=== PATIENT | male | born 1975 | race Caucasian/White ===

== ENCOUNTER 2016-07-28 21:23 | Emergency (ER) | payer BC ==
[2016-07-28 21:38] VITALS: TEMP 98.9; BMI 30.4
--- NOTE | 2016-07-28 22:28 | PDOC ---
History of Present Illness - General History Source: Patient Exam Limitations: No Limitations <Vicente Hudson - Last Filed: 07/28/16 22:44> <Hang Aly - Last Filed: 07/29/16 02:23> - General Chief Complaint: Syncope/Near Syncope Stated Complaint: SYNCOPE Time Seen by Provider: 07/28/16 22:04 - History of Present Illness Initial Comments: 07/28/16 22:44 The patient is a 40 year old male,here with with no significant past medical history who presents to the emergency department with witnessed syncopal episode at home. Patient reports he has been feeling achy all day, noting also feeling lethargic and having a decreased appetite. He then reports having a syncopal episode found by his and awoke in a cold sweat. Denies any head trauma. He denies chest pain and shortness of breath. He denies fever, chills, headache and dizziness. He denies nausea, vomit, diarrhea and constipation. He denies dysuria, frequency, urgency and hematuria. Allergies: NKA (Vicente Hudson) Past History <Vicente Hudson - Last Filed: 07/28/16 22:44> - Past Medical History Anemia: No Asthma: No Cancer: No Cardiac Disorders: No CVA: No COPD: No CHF: No Dementia: No Diabetes: No GI Disorders: No Disorders: No HTN: No Hypercholesterolemia: Yes Liver Disease: No Seizures: No Thyroid Disease: No - Surgical History Abdominal Surgery: Yes (hernia) - Psycho/Social/Smoking Cessation Hx Anxiety: No Suicidal Ideation: No Smoking Status: No Smoking History: Never smoked Have you smoked in the past 12 months: No Number of Cigarettes Smoked Daily: 0 If you are a former smoker, when did you quit?: 6 MONTHS AGO Information on smoking cessation initiated: No 'Breaking Loose' booklet given: 03/10/12 Hx Alcohol Use: No Drug/Substance Use Hx: No Substance Use Type: Alcohol Hx Substance Use Treatment: No <Hang Aly - Last Filed: 07/29/16 02:23> - Past Medical History Allergies/Adverse Reactions: Allergies Allergy/AdvReac Type Severity Reaction Status Date / Time No Known Drug Allergies Allergy Verified 07/28/16 21:34 Home Medications: Ambulatory Orders Aspirin [ASA -] 81 mg PO DAILY 07/28/16 Atorvastatin Ca [Lipitor] 10 mg PO HS 07/28/16 Cardiac Specific PMH - Complaint Specific PMHX Pacemaker: No <Hang Aly - Last Filed: 07/29/16 02:23> Review of Systems - Review of Systems Able to Perform ROS?: Yes <Vicente Hudson - Last Filed: 07/28/16 22:44> <Hang Aly - Last Filed: 07/29/16 02:23> - Review of Systems Comments:: 07/28/16 22:44 CONSTITUTIONAL: No fever, no chills, no fatigue EYES: No visual changes ENT: No ear pain, no sore throat CARDIOVASCULAR: No chest pain, no palpitations RESPIRATORY: No cough, no SOB GI: No abdominal pain, no nausea, no vomiting, no constipation, no diarrhea GENITOURINARY: No dysuria, no frequency, no hematuria MUSKULOSKELETAL: No backpain, no joint pain, no myalgias SKIN: No rash NEURO: Yes syncope. No headache (Vicente Hudsno) *Physical Exam <Vicente Hudson - Last Filed: 07/28/16 22:44> <Hang Aly - Last Filed: 07/29/16 02:23> - Vital Signs Last Vital Signs Temp Pulse Resp BP Pulse Ox 98.9 F 109 H 17 127/80 97 07/28/16 21:35 07/28/16 23:53 07/28/16 23:53 07/28/16 23:53 07/28/16 23:53 - Physical Exam Comments: 07/28/16 22:44 CONSTITUTIONAL: Well-appearing; well-nourished; in no apparent distress HEAD: Normocephalic; atraumatic EYES: PERRL; EOM intact ENMT: External appears normal; normal oropharynx NECK: Supple; non-tender; no cervical lymphadenopathy CARD: Tachycardia. Normal S1, S2; no murmurs, rubs, or gallops RESP: Normal chest excursion with respiration; breath sounds clear and equal bilaterally; no wheezes, rhonchi, or rales ABD: Soft, non-distended; non-tender; no palpable organomegaly, no palpable hernias EXT: Normal ROM in all four extremities; non-tender to palpation; distal pulses intact SKIN: Warm, dry, no rash NEURO: No focal neurological deficiencies. (Vicente Hudson) Heart Score/ECG Review <Vicente Hudson - Last Filed: 07/28/16 22:44> <Hang Aly - Last Filed: 07/29/16 02:23> - ECG Impressions Comment:: 07/28/16 22:31 EKG received and reviewed by at 10:17 pm Sinus tachycardia at 112 bpm [place] interval 158 ms QTc 428 ms (Vicente Hudson) ED Treatment Course - LABORATORY CBC & Chemistry Diagram: 07/28/16 22:45 07/28/16 22:45 <Hang Aly - Last Filed: 07/29/16 02:23> - ADDITIONAL ORDERS Additional order review: Laboratory Results 07/28/16 07/28/16 07/28/16 22:45 22:45 22:40 D-Dimer < 200 Sodium 139 Potassium 3.8 Chloride 101 Carbon Dioxide 24 Anion Gap 14 BUN 12 Creatinine 1.2 D Creat Clearance w eGFR > 60 Random Glucose 178 H D Calcium 8.3 L Total Bilirubin 1.1 H D AST 28 D ALT 57 D Alkaline Phosphatase 120 H D Creatine Kinase 123 Troponin I < 0.02 Total Protein 6.8 Albumin 3.8 Urine Color Straw Urine Appearance Clear Urine pH 6.0 Ur Specific [place] 1.006 Urine Protein Negative Urine Glucose (UA) 1+ H Urine Ketones Negative Urine Blood Negative Urine Nitrite Negative Urine Bilirubin Negative Urine Urobilinogen Negative Ur Leukocyte Esterase Negative 07/28/16 22:45 Influenza Types A,B Antigen (IRENE) - Final Nasopharyngeal Aspirate - Final 07/28/16 22:45 RBC 5.59 MCV 81.5 MCHC 32.9 RDW 14.0 MPV 9.0 D Neutrophils % 87.4 H D Lymphocytes % 6.4 L D Monocytes % 5.6 Eosinophils % 0.3 D Basophils % 0.3 - RADIOLOGY Radiology Studies Ordered: Category Date Time Status CHEST CT WITH CONTRAST [CT] Stat CT Scan 07/29/16 01:17 Taken CHEST PA & LAT [RAD] Stat Radiology 07/28/16 22:40 Taken - Medications Given in the ED: ED Medications Discontinued Medications Generic Name Dose Route Start Last Admin Trade Name Freq PRN Reason Stop Dose Admin Sodium Chloride 1,000 mls @ 1,000 mls/hr 07/28/16 22:40 07/28/16 22:46 Normal Saline - IV 07/28/16 23:39 1,000 mls/hr ASDIR STA Administration Sodium Chloride 1,000 mls @ 1,000 mls/hr 07/28/16 23:52 07/28/16 23:59 Normal Saline - IV 07/29/16 00:51 1,000 mls/hr ASDIR STA Administration Medical Decision Making <Vicente Hudson - Last Filed: 07/28/16 22:44> <Hang Aly - Last Filed: 07/29/16 02:23> - Medical Decision Making 07/29/16 02:17 Patient is well-appearing 40-year-old male who presents with an episode of witnessed syncope preceded by short prodromal period of feeling unwell and "achy ". In the ER, patient was noted to be tachycardic on initial evaluation, afebrile, and normotensive. Serial neurological exams reveal no focal deficits, there is no evidence of meningismus, lungs are clear, serial abdominal exams reveal no focal tenderness/guarding or rebound. CBC reveals minimal leukocytosis with predominance of neutrophils likely suggestive of an acute infectious process. CMP reveals mild hyperglycemia minimally elevated alkaline phosphatase and AST which may also be related to an underlying viral infection. Urinalysis is +1 glucose but there is no evidence of pyuria. Patient is noted to be influenza negative this time. Chest x-ray revealed no evidence of infiltrate or effusion. EKG showed sinus tachycardia at the rate of 112, with evidence of right sided heart strain with S1 Q's 3 T3 pattern as well as RSR" pattern in the lead V1. CT of chest with IV contrast was obtained and reveals no evidence of PE (0.5 cm right lung nodule was noted). I do not suspect cardiogenic syncope at this time. Patient has received 2 L of normal saline and is able to tolerate by mouth solids and liquids in the ED. Patient ambulates without difficulty. Patient is safe for outpatient follow-up. Will discharge with PMD follow-up. (Hang Aly) *DC/Admit/Observation/Transfer <Vicente Hudson - Last Filed: 07/28/16 22:44> <Hang Aly - Last Filed: 07/29/16 02:23> Diagnosis at time of Disposition: Syncope and collapse - Discharge Dispostion Disposition: HOME Condition at time of disposition: Stable - Referrals Referrals: Fer Farris MD [Staff Physician] - - Patient Instructions Printed Discharge Instructions: DI for Syncope in Adults (Fainting) - Attestations Scribe Attestion: 07/28/16 22:30 Documentation prepared by Vicente Hudson, acting as rn medical surgical for Hang Aly MD. 07/28/16 22:45 (Vicente Hudson) Physician Attestion: 07/29/16 02:17 The documentation was prepared by the scribe under my direct supervision. I have reviewed the documentation which correctly represents the findings, medical decision-making and critical action taken by me. (Hang Aly)
[2016-07-28] MEDS ORDERED: SODIUM CHLORIDE 1,000 ML IV STA ×2 (22:40→23:52)
[2016-07-28 23:18] LABS: BASOPHIL 0.3 % (0-2.0); EOSINOPHIL 0.3 % (0-4.5); MCH 26.8 pg (25.7-33.7); MCHC 32.9 g/dl (32.0-35.9); MEAN CELL VOLUME 81.5 fl (80-96); NEUTROPHILS 87.4 % (42.8-82.8); PLATELET COUNT 270 K/MM3 (134-434); WHITE BLOOD COUNT 12.8 K/mm3 (4.0-10.0)
[2016-07-28 23:54] VITALS: BP 127/80; PULSE 109
[2016-07-29 00:06] LABS: URINE APPEARANCE CLEAR; URINE BILIRUBIN NEGATIVE (NEGATIVE); URINE BLOOD NEGATIVE (NEGATIVE); URINE COLOR STRAW; URINE GLUCOSE (UA) 1+ (NEGATIVE); URINE KETONE NEGATIVE (NEGATIVE); URINE LEUK ESTERASE NEGATIVE (NEGATIVE); URINE NITRITE NEGATIVE (NEGATIVE); URINE PROTEIN NEGATIVE (NEGATIVE); URINE UROBILINOGEN NEGATIVE E.U./dl (0.2-1.0)
[2016-07-29 00:42] LABS: ALBUMIN 3.8 g/dl (3.4-5.0); ANION GAP 14 (8-16); CALCIUM 8.3 mg/dL (8.5-10.1); CO2 24 mmol/L (21-32); CREATININE 1.2 mg/dL (0.7-1.3); GLUCOSE,RANDOM 178 mg/dL (74-106); SGPT/ALT 57 U/L (12-78)
[2016-07-29 00:44] LABS: BILIRUBIN,TOTAL 1.1 mg/dL (0.2-1.0); TOT PROT 6.8 g/dl (6.4-8.2)
[2016-07-29 00:46] LABS: ALK PHOS 120 U/L (45-117); TROPONIN I < 0.02 ng/ml (0.00-0.05)
[2016-07-29 00:49] LABS: SGOT/AST 28 U/L (15-37)
--- NOTE | 2016-07-29 13:20 | EKG ---
Test Reason : Blood Pressure : / mmHG Vent. Rate : 112 BPM Atrial Rate : 112 BPM P-R Int : 158 ms QRS Dur : 092 ms QT Int : 314 ms P-R-T Axes : 044 087 029 degrees QTc Int : 428 ms SINUS TACHYCARDIA POSSIBLE LEFT ATRIAL ENLARGEMENT RSR' OR QR PATTERN IN V1 SUGGESTS RIGHT VENTRICULAR CONDUCTION DELAY WHEN COMPARED WITH ECG OF 10-SEP-2014 14:38, NO SIGNIFICANT CHANGE WAS FOUND Confirmed by MD MERCY, CHRISS ([id number]) on 07/29/2016 1:20:08 PM Referred By: Overread By: CHRISS MADRID MD
== END 2016-07-29 02:31 | disposition home or self-care (01) ==
LOC: JER 21:23
PROC: 3E0337Z Introduction of Electrolytic and Water Balance Substance into Peripheral Vein, Percutaneous Approach (ICD-10-PCS; principal; 2016-07-28)
DX: R55 Syncope and collapse (principal); E78.00 Pure hypercholesterolemia, unspecified
CPT/HCPCS: 36415; 71020-TC; 71260-TC; 80053; 81003; 82550; 84484; 85025; 85379; 87804; 93005; 93010; 99282-25

== ENCOUNTER 2021-03-17 12:05 | Emergency (ER) | payer BC ==
[2021-03-17 12:13] VITALS: BP 130/84; BMI 32.6
[2021-03-17] MEDS ORDERED: ceFAZolin SODIUM 1 GM VIAL IM ONE (12:25)
[2021-03-17 12:28] VITALS: PULSE 108
[2021-03-17] MEDS ORDERED: LIDOCAINE HCL 1%, 10 MG/ML (20ML VIAL) ONE (12:35)
== END 2021-03-17 12:45 | disposition home or self-care (01) ==
LOC: JERFT 12:05
DX: S62.525A Nondisplaced fracture of distal phalanx of left thumb, initial encounter for closed fracture (principal); W22.8XXA Striking against or struck by other objects, initial encounter; W27.8XXA Contact with other nonpowered hand tool, initial encounter
CPT/HCPCS: 73140-TC-LT-FY; 99284-25